=== PATIENT | female | born 1955 | race Caucasian/White ===

== ENCOUNTER 2018-05-28 14:14 | Emergency (ER) | payer OTHER ==
[2018-05-28 14:21] VITALS: BP 131/78; PULSE 73; TEMP 99; BMI 25.7
--- NOTE | 2018-05-28 14:40 | PDOC ---
History of Present Illness - General Chief Complaint: Injury Stated Complaint: INJURD WRIST Time Seen by Provider: 05/28/18 14:31 History Source: Patient Exam Limitations: Clinical Condition - History of Present Illness Initial Comments: 05/28/18 14:37 Patient with history of osteoporosis present with complain of right wrist pain status post slip and fall on the wrist yesterday. Patient reported mild pain to right wrist which is worse with lateral deviation of the wrist. Denies any other symptoms 05/28/18 14:39 Timing/Duration: 24 hours Past History - Past Medical History Allergies/Adverse Reactions: Allergies Allergy/AdvReac Type Severity Reaction Status Date / Time No Known Allergies Allergy Verified 05/28/18 14:18 Home Medications: Ambulatory Orders No Home Medications 0 dose .ROUTE UTDICT 05/06/13 Ibuprofen 800 mg PO Q8H PRN #20 tablet 05/28/18 Anemia: No Asthma: No Cancer: No Cardiac Disorders: No CVA: No COPD: No CHF: No Dementia: No Diabetes: Yes GI Disorders: Yes (CONSTIPATION) Disorders: No HTN: Yes (NO MED) Hypercholesterolemia: No Liver Disease: No Seizures: No Thyroid Disease: No - Surgical History Abdominal Surgery: Yes Appendectomy: Yes Cardiac Surgery: No Cholecystectomy: No Lung Surgery: No Neurologic Surgery: No Orthopedic Surgery: No - Suicide/Smoking/Psychosocial Hx Smoking History: Never smoked Have you smoked in the past 12 months: No Hx Alcohol Use: Yes ([facility].) Drug/Substance Use Hx: No Substance Use Type: None Review of Systems - Review of Systems Able to Perform ROS?: Yes Is the patient limited Nepali proficient: No Constitutional: No: Chills, Diaphoresis, Fever, Loss of Appetite, Malaise, Night Sweats, Weakness, Weight Stable, Unintentional Wgt. Loss, Unexplained wgt Loss, Other HEENTM: No: Eye Pain, Blurred Vision, Tearing, Recent change in vision, Double Vision, Cataracts, Ear Pain, Ocular Prothesis, Ear Discharge, Nose Pain, Nose Congestion, Tinnitus, Nose Bleeding, Hearing Loss, Throat Pain, Throat Swelling , Mouth Pain, Dental Problems, Difficulty Swallowing, Mouth Swelling, Other Respiratory: No: Cough, Orthopnea, Shortness of Breath, SOB with Exertion, SOB at Rest, Stridor, Wheezing, Productive cough, Hemoptysis, Other Cardiac (ROS): No: Chest Pain, Edema, Irregular Heart Rate, Lightheadedness, Palpitations, Syncope, Chest Tightness, Other ABD/GI: No: Abdominal Distended, Abd. Pain w/ defecation, Blood Streaked Bowels , Constipated, Diarrhea, Difficulty Swallowing, Nausea, Poor Appetite, Poor Fluid Intake, Rectal Bleeding, Vomiting, Indigestion, Abdominal cramping, Tarry Stools, Other Musculoskeletal: Yes: See HPI, Joint Pain (right wrist), Muscle Pain (right wrist). No: Joint Swelling, Joint Stiffness All Other Systems: Reviewed and Negative *Physical Exam - Vital Signs Last Vital Signs Temp Pulse Resp BP Pulse Ox 99 F 73 19 131/78 97 05/28/18 14:18 05/28/18 14:18 05/28/18 14:18 05/28/18 14:18 05/28/18 14:18 - Physical Exam Comments: 05/28/18 14:38 GENERAL: Well developed, well nourished. Awake and alert. No acute distress. HEENT: Normocephalic, atraumatic. PERRLA, EOMI. No conjunctival pallor. Sclera are non- icteric. Moist mucous membranes. Oropharynx is clear. NECK: Supple. Full ROM. No JVD. Carotid pulses 2+ and symmetric, without bruits. No thyromegaly. No lymphadenopathy. CARDIOVASCULAR: Regular rate and rhythm. No murmurs, rubs, or gallops. Distal pulses are 2+ and symmetric. PULMONARY: No evidence of respiratory distress. Lungs clear to auscultation bilaterally. No wheezing, rales or rhonchi. ABDOMINAL: Soft. Non-tender. Non-distended. No rebound or guarding. No organomegaly. Normoactive bowel sounds. MUSCULOSKELETAL : Mild tenderness over dorsal aspects of radial part of right wrist.Normal range of motion at all joints. No bony deformities EXTREMITIES: No cyanosis. No clubbing. No edema. No calf tenderness. SKIN: Warm and dry. Normal capillary refill. No rashes. No jaundice. NEUROLOGICAL: Alert, awake, appropriate. Cranial nerves 2-12 intact. No deficits to light touch and temperature in face, upper extremities and lower extremities. No motor deficits in the in face, upper extremities and lower extremities. Normoreflexic in the upper and lower extremities. Normal speech. Toes are down- going bilaterally. Gait is normal without ataxia. PSYCHIATRIC: Cooperative. Good eye contact. Appropriate mood and affect. General Appearance: Yes: Nourished, Appropriately Dressed. No: Apparent Distress ED Treatment Course - RADIOLOGY Radiology Studies Ordered: Category Date Time Status WRIST W/HAND-RIGHT* [RAD] Stat Radiology 05/28/18 14:36 Ordered Medical Decision Making - Medical Decision Making 05/28/18 14:38 Patient with history of osteoporosis presenting with complain of right wrist pain status post slip and fall yesterday on the wrist. Exam shows mild tenderness to dorsal aspect of right wrist. X-ray of right wrist and hand ordered to rule out fracture or pathology 05/28/18 15:28 x-rays of right wrist and hand shows no acute fracture or dislocation. symptoms likely wrist sprain. Patient will be treated with wrist brace and NSAID with ortho f/u prn *DC/Admit/Observation/Transfer Diagnosis at time of Disposition: Right wrist sprain Qualifiers: Encounter type: initial encounter Qualified Code(s): S63.501A - Unspecified sprain of right wrist, initial encounter - Discharge Dispostion Disposition: HOME Condition at time of disposition: Stable Decision to Admit order: No - Prescriptions Prescriptions: Ibuprofen 800 mg PO Q8H PRN #20 tablet PRN Reason: wrist pain - Referrals Referrals: Norma Parrish MD [Primary Care Provider] - - Patient Instructions Printed Discharge Instructions: Wrist Sprain Additional Instructions: take motrin as needed for pain. keep wrist brace on until symptoms resolves - Post Discharge Activity
== END 2018-05-28 15:27 | disposition home or self-care (01) ==
LOC: JERFT 14:14
PROC: 2W3CX1Z Immobilization of Right Lower Arm using Splint (ICD-10-PCS; principal; 2018-05-28)
DX: S63.501A Unspecified sprain of right wrist, initial encounter (principal); W01.0XXA Fall on same level from slipping, tripping and stumbling without subsequent striking against object, initial encounter; Y93.89 Activity, other specified; Y92.9 Unspecified place or not applicable
CPT/HCPCS: 29125; 73110-TC-RT-FY; 73130-TC-RT-FY; 99281-25